=== PATIENT | female | born 1990 | race Hispanic/Latino ===

== ENCOUNTER 2018-01-12 04:25 | Emergency (ER) | payer MEDICAID, OTHER ==
[2018-01-12] MEDS ORDERED: TETANUS/DIPHTHERIA TOXOID [ADULT] 0.5 ML VIAL IM ONE (05:05)
[2018-01-12] MEDS ORDERED: ACETAMINOPHEN 325 MG TAB ONE (05:05)
[2018-01-12 06:06] LABS: HCG,QUAL RESULT NEGATIVE (NEGATIVE)
[2018-01-12 06:10] LABS: AMPHET/METH SCREEN,URINE NEGATIVE (NEGATIVE); BARBITURATE SCREEN, URINE NEGATIVE (NEGATIVE); BENZODIAZEPINES SCREEN,URINE NEGATIVE (NEGATIVE); CANNABINOID SCREEN,URINE NEGATIVE (NEGATIVE); COCAINE SCREEN,URINE NEGATIVE (NEGATIVE); OPIATE SCREEN,URINE NEGATIVE (NEGATIVE); PHENCYCLIDINE SCREEN,URINE NEGATIVE (NEGATIVE)
[2018-01-12] MEDS ORDERED: OCTYL 2-CYANOACRYLATE 1 EACH TP ONE (06:32)
[2018-01-12] MEDS ORDERED: OXYMETAZOLINE HCL SPRAY 15 ML BOTTLE ONE (06:44)
== END 2018-01-12 08:34 | disposition home or self-care (01) ==
LOC: EDH 04:25
DX: S02.2XXB Fracture of nasal bones, initial encounter for open fracture (principal); S01.81XA Laceration without foreign body of other part of head, initial encounter; J01.00 Acute maxillary sinusitis, unspecified; F14.10 Cocaine abuse, uncomplicated; Z72.0 Tobacco use; Y04.2XXA Assault by strike against or bumped into by another person, initial encounter; Y93.89 Activity, other specified; Y92.098 Other place in other non-institutional residence as the place of occurrence of the external cause; Y99.8 Other external cause status
CPT/HCPCS: 12011; 70450; 70486; 80305; 81025; 90471; 90714

== ENCOUNTER 2018-03-31 02:18 | Emergency (ER) | payer MEDICAID, OTHER ==
[2018-03-31] MEDS ORDERED: LIDOCAINE HCL 2% JELLY 5 ML ONE (03:14)
[2018-03-31] MEDS ORDERED: AMOXICILLIN 500 MG CAPSULE PO ONE (03:14)
== END 2018-03-31 03:26 | disposition home or self-care (01) ==
LOC: EDH 02:18
DX: S01.512A Laceration without foreign body of oral cavity, initial encounter (principal); Z72.0 Tobacco use; X58.XXXA Exposure to other specified factors, initial encounter; Y93.89 Activity, other specified; Y92.89 Other specified places as the place of occurrence of the external cause; Y99.8 Other external cause status

== ENCOUNTER 2018-08-09 05:19 | Emergency (ER) | payer MEDICAID ==
[2018-08-09] MEDS ORDERED: AMOXICILLIN/POTASSIUM CLAV 875-125 TABLET PO ONE (06:03)
[2018-08-09] MEDS ORDERED: TETANUS/DIPHTHERIA TOXOID [ADULT] 0.5 ML VIAL IM ONE (06:03)
[2018-08-09] MEDS ORDERED: IBUPROFEN 600 MG TABLET ONE (06:21)
[2018-08-09] MEDS ORDERED: ACETAMINOPHEN EXTRA STRENGTH 500 MG TABLET ONE (06:21)
== END 2018-08-09 06:26 | disposition home or self-care (01) ==
LOC: EDH 05:19
DX: S90.871A Other superficial bite of right foot, initial encounter (principal); Z72.0 Tobacco use; Y04.1XXA Assault by human bite, initial encounter; Y93.89 Activity, other specified; Y92.89 Other specified places as the place of occurrence of the external cause; Y99.8 Other external cause status
CPT/HCPCS: 90471; 90714

== ENCOUNTER 2020-02-21 01:18 | Emergency (ER) | payer MEDICAID | END 2020-02-21 01:32 | disposition home or self-care (01) | LOC: EDH 01:18 | CPT/HCPCS: 99281 ==

== ENCOUNTER 2020-02-21 01:34 | Emergency (ER) | payer MEDICAID ==
[2020-02-21] MEDS ORDERED: KETOROLAC TROMETHAMINE 60 MG/2 ML VIAL ONE (02:16)
[2020-02-21] MEDS ORDERED: ACETAMINOPHEN EXTRA STRENGTH 500 MG TABLET ONE (02:16)
[2020-02-21] MEDS ORDERED: TETANUS/DIPHTHERIA TOXOID [ADULT] 0.5 ML VIAL IM ONE (02:17)
[2020-02-21] MEDS ORDERED: HYDROCODONE/ACETAMINOPHEN 5/325 MG TAB ONE (05:20)
[2020-02-21] MEDS ORDERED: ONDANSETRON ODT 4 MG TAB ONE (05:20)
== END 2020-02-21 05:27 | disposition home or self-care (01) ==
LOC: EDH 01:34
DX: S02.2XXA Fracture of nasal bones, initial encounter for closed fracture (principal); S00.81XA Abrasion of other part of head, initial encounter; Z72.0 Tobacco use; Y09 Assault by unspecified means; Y93.89 Activity, other specified; Y92.098 Other place in other non-institutional residence as the place of occurrence of the external cause; Y99.8 Other external cause status
CPT/HCPCS: 70486; 90471; 90714; 96372; 99281; 99284; J1885

== ENCOUNTER 2021-01-19 16:04 | Emergency (ER) | payer MEDICAID ==
[~2021-01-19] VITALS: Ht 154.9 cm; Wt 68.9 kg
[2021-01-19] MEDS ORDERED: ONDANSETRON 4MG INJ IVP SCH (17:00)
[2021-01-19] MEDS ORDERED: MORPHINE 2 MG SYG IVP SCH (17:00)
[2021-01-19 17:12] LABS: APPEARANCE,URINE Clear (CLEAR); BILIRUBIN,URINE Negative (NEGATIVE); COLOR,URINE Yellow (YELLOW); GLUCOSE, URINE (UA) Negative (NEGATIVE); KETONES,URINE Trace mg/dL (NEGATIVE); LEUKOCYTE ESTERASE ,URINE Trace (NEGATIVE); NITRATE,URINE Negative (NEGATIVE); OCCULT BLOOD,URINE Negative (NEGATIVE); PH,URINE 7.5 (5.0-8.0); PROTEIN,URINE Negative (NEGATIVE)
[2021-01-19 17:18] LABS: HCG,QUAL RESULT NEGATIVE (NEGATIVE)
[2021-01-19 17:23] LABS: BACTERIA,URINE Few /HPF (None Seen); MUCUS,URINE Few LPF (None Seen); SQUAMOUS EPITHELIAL CELL,UR Moderate /HPF (0-2)
[2021-01-19 17:40] LABS: BASOPHILS % (AUTO) 0.8 % (0.0-5.0); EOSINOPHILS % (AUTO) 2.7 % (0.0-8.0); HEMATOCRIT 40.4 % (36-48); LYMPHOCYTES % (AUTO) 22.1 % (21.0-51.0); MEAN CORPUSCULAR HEMOGLOBIN 30.9 pg (27.0-33.0); MEAN CORPUSCULAR HGB CONC 32.9 g/dL (32.0-36.0); MONOCYTES % (AUTO) 8.5 % (3.0-13.0); NEUTROPHILS % (AUTO) 65.6 % (40.0-77.0); PLATELET COUNT (AUTO) 154 K/uL (130-400); WHITE BLOOD COUNT (AUTO) 7.5 K/uL (4.8-10.8)
[2021-01-19 17:51] LABS: CREATININE 0.8 mg/dL (0.5-1.5)
[2021-01-19 17:56] LABS: ALBUMIN 3.9 g/dL (3.5-5.0); BILIRUBIN,TOTAL 0.9 mg/dL (0.2-1.0); TOTAL PROTEIN, SERUM 7.5 g/dL (6.0-8.3)
[2021-01-19] MEDS ORDERED: TETANUS/DIPHTHERIA TOXOID [ADULT] 0.5 ML VIAL IM ONE ×2 (18:00→19:37)
[2021-01-19] MEDS ORDERED: CLIN-141 PO (19:14)
[2021-01-19] MEDS ORDERED: ACET-2247 PO (19:14)
[2021-01-19] MEDS ORDERED: CLINDAMYCIN IVPB 600MG/50ML 50 ML IV SCH (19:30)
[2021-01-19 20:36] VITALS: BP 116/72
== END 2021-01-19 20:54 | disposition home or self-care (01) ==
LOC: EDH 16:04
DX: S02.832A Fracture of medial orbital wall, left side, initial encounter for closed fracture (principal); S00.83XA Contusion of other part of head, initial encounter; S00.81XA Abrasion of other part of head, initial encounter; Y04.0XXA Assault by unarmed brawl or fight, initial encounter; Y93.89 Activity, other specified; Y92.89 Other specified places as the place of occurrence of the external cause; Y99.8 Other external cause status
CPT/HCPCS: 36415; 70450; 70486; 72125; 80053; 81001; 81025; 85025; 90471; 90714; 96365; 96375; 99285; J2405; J3490

== ENCOUNTER 2022-04-12 03:41 | Emergency (ER) | payer MEDICAID ==
[~2022-04-12] VITALS: Ht 154.9 cm; Wt 68.5 kg
[~2022-04-12 03:41] MED LIST: ACET-2247 PO; CLIN-141 PO
[2022-04-12 04:28] LABS: ALBUMIN 4.2 g/dL (3.5-5.0); CREATININE 0.8 mg/dL (0.5-1.5); HCG,QUALITATIVE URINE NEGATIVE (NEGATIVE); TOTAL PROTEIN, SERUM 8.3 g/dL (6.0-8.3)
[2022-04-12 04:31] LABS: AMPHET/METH SCREEN,URINE NEGATIVE (NEGATIVE); BARBITURATE SCREEN, URINE NEGATIVE (NEGATIVE); BASOPHILS % (AUTO) 1.4 % (0.0-5.0); BENZODIAZEPINES SCREEN,URINE NEGATIVE (NEGATIVE); CANNABINOID SCREEN,URINE NEGATIVE (NEGATIVE); COCAINE SCREEN,URINE NEGATIVE (NEGATIVE); EOSINOPHILS % (AUTO) 2.5 % (0.0-8.0); HEMATOCRIT 42.3 % (36-48); LYMPHOCYTES % (AUTO) 51.3 % (21.0-51.0); MEAN CORPUSCULAR HEMOGLOBIN 31.3 pg (27.0-33.0); MEAN CORPUSCULAR HGB CONC 33.1 g/dL (32.0-36.0); MEAN CORPUSCULAR VOLUME 94.6 fL (79-99); NEUTROPHILS % (AUTO) 37.6 % (40.0-77.0); OPIATE SCREEN,URINE NEGATIVE (NEGATIVE); PHENCYCLIDINE SCREEN,URINE NEGATIVE (NEGATIVE); PLATELET COUNT (AUTO) 222 K/uL (130-400); RED BLOOD CELL COUNT(AUTO) 4.47 MIL/uL (4.00-5.50); RED CELL DISTRIBUTION WIDTH 12.1 % (11.0-15.5); WHITE BLOOD COUNT (AUTO) 6.4 K/uL (4.8-10.8)
[2022-04-12 04:35] LABS: POTASSIUM 2.8 mmol/L (3.5-5.1)
[2022-04-12] MEDS ORDERED: POTASSIUM CHLORIDE 10% ELIXIR 20 MEQ/15 ML UDCUP PO ONE (05:00)
[2022-04-12 06:12] VITALS: BP 129/89
== END 2022-04-12 06:16 | disposition home or self-care (01) ==
LOC: EDH 03:41
DX: E87.6 Hypokalemia (principal); F41.9 Anxiety disorder, unspecified; R07.9 Chest pain, unspecified; Z20.822 Contact with and (suspected) exposure to COVID-19
CPT/HCPCS: 99284; 71045; 87635; 80053; 80305; 85025; 87804 ×2; 81025; 36415; C9803

== ENCOUNTER 2023-02-02 22:04 | Emergency (ER) | payer MEDICAID, OTHER ==
[~2023-02-02] VITALS: Ht 154.9 cm; Wt 66.7 kg
[2023-02-02] MEDS ORDERED: 0.9%NACL 1000ML 1,000 ML IV ONE (22:30)
[2023-02-02 22:43] LABS: BASOPHILS # (AUTO) 0.11 K/uL (0.00-0.20); BASOPHILS % (AUTO) 1.6 % (0.0-5.0); EOSINOPHILS # (AUTO) 0.29 K/uL (0.00-0.70); EOSINOPHILS % (AUTO) 4.1 % (0.0-8.0); HEMATOCRIT 44.1 % (36-48); IMMATURE GRANULOCYTE ABSOLUTE 0.01 K/uL (0-1); LYMPHOCYTES # (AUTO) 3.3 K/uL (1.0-4.8); LYMPHOCYTES % (AUTO) 47.4 % (21.0-51.0); MEAN CORPUSCULAR HEMOGLOBIN 32.4 pg (27.0-33.0); MEAN CORPUSCULAR HGB CONC 33.1 g/dL (32.0-36.0); MEAN CORPUSCULAR VOLUME 97.8 fL (79-99); MONOCYTES # (AUTO) 0.8 K/uL (0.1-1.0); MONOCYTES % (AUTO) 11.6 % (3.0-13.0); NEUTROPHILS # (AUTO) 2.5 K/uL (1.8-7.7); NEUTROPHILS % (AUTO) 35.2 % (40.0-77.0); PLATELET COUNT (AUTO) 210 K/uL (130-400); RED BLOOD CELL COUNT(AUTO) 4.51 MIL/uL (4.00-5.50); RED CELL DISTRIBUTION WIDTH 13.2 % (11.0-15.5)
[2023-02-02 22:51] LABS: CREATININE 0.7 mg/dL (0.5-1.5); POTASSIUM 3.3 mmol/L (3.5-5.1)
[2023-02-02] MEDS ORDERED: KCL 20 MEQ ERTAB PO ONE (23:00)
[2023-02-03 01:41] VITALS: BP 124/60; PULSE 74; RESP 18; O2SAT 98
== END 2023-02-03 01:57 | disposition home or self-care (01) ==
LOC: EDH 22:04
DX: N39.8 Other specified disorders of urinary system (principal); D25.2 Subserosal leiomyoma of uterus; F41.9 Anxiety disorder, unspecified; Z79.899 Other long term (current) drug therapy; Z98.890 Other specified postprocedural states
CPT/HCPCS: 99284; 76856; 80048; 84703; 85025; 36415; J7030